=== PATIENT | male | born 1960 | race Caucasian/White ===

== ENCOUNTER 2016-09-13 16:12 | Emergency (ER) | payer OTHER ==
[~2016-09-13] VITALS: Ht 182.9 cm; Wt 85.0 kg
[2016-09-13 16:22] VITALS: Ht 182.9 cm; Wt 85.0 kg
[2016-09-13] MEDS ORDERED: HALOPERIDOL 5 MG INJ ONE (16:24)
[2016-09-13] MEDS ORDERED: LORAZEPAM 2 MG INJ ONE (16:24)
[2016-09-13] MEDS ORDERED: LORAZEPAM 2 MG INJ IM ONE (16:30)
[2016-09-13 16:47] LABS: ADD SCAN DIFF NO
[2016-09-13 16:57] LABS: BASOPHILS % 0.3 % (0.0-2.0); EOSINOPHILS # 0.1 10^3/ul (0.0-0.5); EOSINOPHILS % 1.2 % (0.0-7.0); HEMATOCRIT 48.4 % (42.0-52.0); HEMOGLOBIN 16.3 g/dl (14.0-18.0); LYMPHOCYTES # 1.6 10^3/ul (0.8-2.9); LYMPHOCYTES % 13.8 % (15.0-51.0); MEAN CORPUSCULAR HEMOGLOBIN 31.7 pg (29.0-33.0); MEAN CORPUSCULAR HGB CONC 33.7 g/dl (32.0-37.0); MEAN CORPUSCULAR VOLUME 94.2 fl (82.0-101.0); MEAN PLATELET VOLUME 9.8 fl (7.4-10.4); MONOCYTE # 1.3 10^3/ul (0.3-0.9); MONOCYTES % 11.5 % (0.0-11.0); NEUTROPHIL # 8.4 10^3/ul (1.6-7.5); NEUTROPHILS % 72.9 % (39.0-77.0); PLATELET COUNT 246 10^3/UL (140-415); RED BLOOD COUNT 5.14 10^6/ul (4.70-6.10); RED CELL DISTRIBUTION WIDTH 12.4 % (11.5-14.5); WHITE BLOOD COUNT 11.5 10^3/ul (4.8-10.8)
[2016-09-13 17:04] LABS: ALBUMIN 4.4 g/dl (3.3-4.9); CHLORIDE 101 mmol/L (97-110); SODIUM 142 mmol/L (135-144)
[2016-09-13 17:05] LABS: POTASSIUM 3.7 mmol/L (3.5-5.1)
[2016-09-13 17:06] LABS: CREATININE 1.08 mg/dl (0.61-1.24)
[2016-09-13 17:07] LABS: ALANINE AMINOTRANSFERASE 35 IU/L (13-69); ALBUMIN/GLOBULIN RATIO 1.33; ALKALINE PHOSPHATASE 59 IU/L (42-121); ANION GAP 18 (8-16); ASPARTATE AMINO TRANSFERASE 62 IU/L (15-46); BLOOD UREA NITROGEN 21 mg/dl (7-20); CARBON DIOXIDE 27 mmol/L (21-31); GLUCOSE 103 mg/dl (70-220); TOTAL PROTEIN 7.7 g/dl (6.1-8.1)
[2016-09-13 17:08] LABS: ACETAMINOPHEN < 10.0 ug/ml (10.0-30.0); CALCIUM 9.4 mg/dl (8.4-10.2); SALICYLATE < 1.0 mg/dl (5.0-30.0)
[2016-09-13 17:09] LABS: ETHANOL < 10.0 mg/dl
--- NOTE | 2016-09-13 18:08 | PSY ---
Date/Time of Note Date/Time of Note DATE: 09/13/16 TIME: 21:04 Psychiatric Subjective Eval Consent Pt consented to telemedicine: Yes Subjective Evaluation Patient location: emergency Chief Complaint: [place] W/ PD FOUND ON THE STRE[address] TALKING TO TREES AND AGITATED History of present illness The patient is a 55 yo male. The pt had just received 2mg ativan an hour previous to interview so was not able to engage in interview beyond a few questions though MD tried numerous times to engage pt (he kept falling asleep). By report, the pt was found by police agitated and speaking with trees. He remained agitated in the ED and received 2mg ativan which calmed him down. MD asked pt why he was in ED and he said he does not know. He denies speaking with trees . He denies drug use. Pt was not able to answer any other questoins. Past Psych Hx: unknown as pt was unable to answer questions PMHx: unknown as pt was unable to answer questions All: unknown as pt was unable to answer questions Meds: unknown as pt was unable to answer questions MSE: disheveled, lying in gurney, fallignasleep, barely abl eto answer without falling asleep Imp: 55 yo male who was psychotic and agitated upon presentation, now in control s/p ativan but unable to participate in interview. Given pt's recent hx, would continue 5150. Woud obtain utox, electrolytes, cbc, lfts, tsh. -MAy be drugs or primary psychosis/channing -for moderate agitation would recommend risperidone 2mg po and ativan 2mg po for severe agitation haldol 5mg im, ativan 2mg im, cogentin 1mg im Psychiatric Objective Eval Mental Status Examination: Laboratory Results Laboratory Tests Test 09/13/16 16:37 White Blood Count 11.510^3/ul Red Blood Count 5.1410^6/ul Hemoglobin 16.3g/dl Hematocrit 48.4% Mean Corpuscular Volume 94.2fl Mean Corpuscular Hemoglobin 31.7pg Mean Corpuscular Hemoglobin Concent 33.7g/dl Red Cell Distribution Width 12.4% Platelet Count 49881^3/UL Mean Platelet Volume 9.8fl Neutrophils % 72.9% Lymphocytes % 13.8% Monocytes % 11.5% Eosinophils % 1.2% Basophils % 0.3% Nucleated Red Blood Cells % 0.0/100WBC Neutrophils # 8.410^3/ul Lymphocytes # 1.610^3/ul Monocytes # 1.310^3/ul Eosinophils # 0.110^3/ul Basophils # 0.010^3/ul Nucleated Red Blood Cells # 0.010^3/ul Sodium Level 142mmol/L Potassium Level 3.7mmol/L Chloride Level 101mmol/L Carbon Dioxide Level 27mmol/L Anion Gap 18 Blood Urea Nitrogen 21mg/dl Creatinine 1.08mg/dl Glucose Level 103mg/dl Calcium Level 9.4mg/dl Total Bilirubin 2.0mg/dl Direct Bilirubin 0.00mg/dl Indirect Bilirubin 2.0mg/dl Aspartate Amino Transf (AST/SGOT) 62IU/L Alanine Aminotransferase (ALT/SGPT) 35IU/L Alkaline Phosphatase 59IU/L Total Protein 7.7g/dl Albumin 4.4g/dl Globulin 3.30g/dl Albumin/Globulin Ratio 1.33 Salicylates Level < 1.0mg/dl Acetaminophen Level < 10.0ug/ml Ethyl Alcohol Level < 10.0mg/dl Assessment and Plan Recommendation/Plan 5150 Recommendation: Continue Hold OLEGARIO CONROY September 13, 2016 18:08
[2016-09-13 19:26] VITALS: BP 134/84; PULSE 99; RESP 20; TEMP 97.9
--- NOTE | 2016-09-13 21:42 | ERD ---
ER Documentation Chief Complaint Date/Time DATE: 09/13/16 TIME: 21:38 Chief Complaint [place]INA W/ PD FOUND ON THE STRE[address] TALKING TO TREES AND AGITATED HPI And 55-year-old man brought in by EMS initially under [employer] custody for agitation and screaming out trees, he does have a history of drug abuse, no obvious psychiatric history. He had no trauma, no head injury, denies chest pain or shortness of breath, no vomiting or diarrhea, no chest pain or shortness of breath. Patient was transported here agitated otherwise without complications. ROS All systems reviewed and are negative except as per history of present illness. PMhx/Soc History of drug abuse Medical and Surgical Hx: pt denies Surgical Hx History of Surgery: No Anesthesia Reaction: No Hx Neurological Disorder: No Hx Respiratory Disorders: Yes (ASTHMA) Hx Cardiac Disorders: No Hx Psychiatric Problems: Yes (DEPRESSION, ANXIETY) Hx Miscellaneous Medical Probl: No Hx Alcohol Use: Yes Hx Substance Use: Yes Hx Tobacco Use: No Smoking Status: Unknown if ever smoked FmHx Family History: No diabetes Physical Exam Vitals Vital Signs Date Time Temp Pulse Resp B/P Pulse Ox O2 Delivery O2 Flow Rate FiO2 09/13/16 19:26 97.9 99 20 134/84 100 Room Air 09/13/16 18:30 98.1 92 18 126/82 93 Room Air 09/13/16 16:22 98.8 100 20 137/81 93 Physical Exam GENERAL: Well-developed, well-nourished, agitated HEENT: Moist mucous membranes, pink conjunctiva, no cervical spine tenderness or step-off deformities, no goiter, no jaundice or icterus, extraocular movements intact without pain. No submandibular induration, and no pharyngeal erythema NEURO: Alert and oriented 3, cranial nerves II through XII intact bilaterally, pupils equal round reactive to light, no focal deficits or facial asymmetry, sensation intact distally Strength 5/5 in upper and lower extremities bilaterally CARDIAC: Regular rate and rhythm, no murmurs rubs or gallops LUNGS: Clear bilaterally no wheezing crackles or stridor ABDOMEN: Soft nontender, no guarding, no rigidity, no rebound, no psoas sign no obturator sign. Normoactive bowel sounds SKIN: Warm and dry to touch, no abrasions, contusions, or hematomas, no lacerations, no ecchymosis, no target lesions, and without ulcers EXTREMITIES: No clubbing cyanosis or edema, calves are bilaterally symmetrical, no Homans sign, no popliteal cord sign. Distal pulses equal and bilateral PSYCH: Agitated Result Diagram: 09/13/16 1637 09/13/16 1637 Results 24 hrs Laboratory Tests Test 09/13/16 16:37 White Blood Count 11.510^3/ul Red Blood Count 5.1410^6/ul Hemoglobin 16.3g/dl Hematocrit 48.4% Mean Corpuscular Volume 94.2fl Mean Corpuscular Hemoglobin 31.7pg Mean Corpuscular Hemoglobin Concent 33.7g/dl Red Cell Distribution Width 12.4% Platelet Count 84828^3/UL Mean Platelet Volume 9.8fl Neutrophils % 72.9% Lymphocytes % 13.8% Monocytes % 11.5% Eosinophils % 1.2% Basophils % 0.3% Nucleated Red Blood Cells % 0.0/100WBC Neutrophils # 8.410^3/ul Lymphocytes # 1.610^3/ul Monocytes # 1.310^3/ul Eosinophils # 0.110^3/ul Basophils # 0.010^3/ul Nucleated Red Blood Cells # 0.010^3/ul Sodium Level 142mmol/L Potassium Level 3.7mmol/L Chloride Level 101mmol/L Carbon Dioxide Level 27mmol/L Anion Gap 18 Blood Urea Nitrogen 21mg/dl Creatinine 1.08mg/dl Glucose Level 103mg/dl Calcium Level 9.4mg/dl Total Bilirubin 2.0mg/dl Direct Bilirubin 0.00mg/dl Indirect Bilirubin 2.0mg/dl Aspartate Amino Transf (AST/SGOT) 62IU/L Alanine Aminotransferase (ALT/SGPT) 35IU/L Alkaline Phosphatase 59IU/L Total Protein 7.7g/dl Albumin 4.4g/dl Globulin 3.30g/dl Albumin/Globulin Ratio 1.33 Salicylates Level < 1.0mg/dl Acetaminophen Level < 10.0ug/ml Ethyl Alcohol Level < 10.0mg/dl Current Medications Medications (Trade) Dose Ordered Sig/Marge Route PRN Reason Start Time Stop Time Status Last Admin Dose Admin Lorazepam (Ativan) 2 mg ONCE ONCE IM 09/13/16 16:30 09/13/16 16:31 DC 09/13/16 16:26 Procedures/MDM Initially for the patient's safety and our safety was placed in 4. restraints, and sedated with lorazepam 2 mg intramuscular injection. CBC and electrolytes are normal, liver function tests were normal, aspirin and Tylenol levels were negative, alcohol level was negative. Tele-psychiatry consultation was pursued and they did speak to the patient at the bedside although because he was still somewhat lethargic they recommended reevaluation at a later time I did not place the patient on a 5150 psychiatric hold. Almost 2 hours after initial lorazepam treatment patient's mental status improved dramatically he felt much better and had no complaints, I observed him ambulating in the emergency department without any difficulty, he appears stable and his vital signs are normal. He had no psychiatric complaints and patient was discharged and I recommended follow-up with PMD. Differential diagnoses considered, included but not limited to acute coronary syndrome, pulmonary embolism, aortic dissection, abdominal aortic aneurysm, sepsis, stroke, meningitis, encephalitis, pneumonia, appendicitis, cholecystitis , bowel obstruction, pyelonephritis, nephrolithiasis, cystitis, as well as metabolic, hematologic, and electrolyte abnormalities. As well as abscess, cellulitis, fractures, and dislocations. Patient feels much better at this time, and vital signs are normal, symptoms have improved. I did give strict instructions to return to the ED if symptoms continue or worsen, patient will otherwise follow-up with primary care physician. Patient understood instructions and agreed to plan. 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
== END 2016-09-13 19:32 | disposition home or self-care (01) ==
LOC: E/R 16:12
DX: F41.1 Generalized anxiety disorder (principal); F23 Brief psychotic disorder; J45.909 Unspecified asthma, uncomplicated; F19.10 Other psychoactive substance abuse, uncomplicated
CPT/HCPCS: 80053; 80306; 85025; 96372; J2060; Z7502; J1630